=== PATIENT | male | born 1995 | race Caucasian/White ===

== ENCOUNTER → 2023-06-14 14:00 | Outpatient (REF) | payer OTHER, SELFPAY ==
--- NOTE | 2023-06-14 14:07 | CA_ITS ---
Transthoracic Echocardiogram Patient (Last, First, Middle): Phi Hutchison, Gender: Male Date of : 1995 Age: 27 Procedure Date: 06/14/2023 Procedure Type: Transthoracic Echocardiogram Location: OP Height: 182.88 cm Weight: 68.04 kg BSA: 1.89 m2 Heart Rate: bpm BP: 118 / 70 mmHg Systems Coordinator: TO Referring MD: Jacquelyn Pyle NP Toll Bridge Operator: Tao Nguyen MD Symptoms: R00.2 PALPITATIONS Study Quality: Adequate ECG Rhythm: Sinus Conclusions: - Normal study Findings Left Ventricle Normal left ventricular size, thickness, and systolic function. The visually estimated ejection fraction is between 60-65%. Diastolic function is normal for age. Peak GLS is -24.5< which is excellent. Right Ventricle Normal right ventricular cavity size and systolic function. Atria Both atria are normal in size. There is no evidence of interatrial shunt. Aortic Valve Normal aortic valve structure and function. There is no aortic valve stenosis. There is no aortic valve regurgitation. Mitral Valve Normal mitral valve structure and function. There is trace mitral valve regurgitation. There is no mitral valve stenosis. Pulmonic Valve The pulmonic valve is likely normal. There is trace pulmonic valve regurgitation. Tricuspid Valve Normal tricuspid valve structure. There is trace tricuspid valve regurgitation. The right ventricular systolic pressure is normal. The right ventricular systolic pressure is 19 mmHg. Normal right atrial pressure. There is no evidence of pulmonary hypertension. Great Vessels All visible segments of the aorta are normal in size. The pulmonary artery was not well visualized. Venous The inferior vena cava is normal in size and collapses greater than 50% with inspiration. Pericardium/Pleural There is no evidence of pericardial effusion. Prior Study Comparison No prior study available for comparison. Measurements 2D Linear Measurements IVSd: 0.94 0.6-0.9/0.6-1.0 cm LVIDd: 4.50 3.9-5.3/4.2-5.9 cm LVIDd Index: 2.38 2.4-3.2/2.2-3.1 cm/m2 LVIDs: 2.66 2.0-3.6 cm LVPWd: 0.79 0.7-1.1 cm LA Diam: 3.50 2.7-3.8/3.0-4.0 cm LAIDs Index: 1.85 1.5-2.3 cm/m2 LV Mass: 155.86 67-162/88-224 g LV Mass Index: 82.47 43-95/49-115 g/m2 LVOT Diam: 2.10 3.0+(-)1.3 cm 2D Systolic Function EF 4C: 60.10 >55% EF 2C: 64.40 >55% EF BiP: 62.50 >55% Mitral Valve MV Pk E: 0.81 MV PK A: 0.52 MV Decel Time: 212.00 E/A: 1.60 E'Lateral: 16.30 E'Medial: 10.60 E/E' Med: 7.70 E/E' Lat: 5.00 PHT: 62.00 MVA PHT: 3.55 Decel [place]: 3.84 Aortic Valve AoV Pk Jason: 1.15 AoV Mn Jason: 0.76 AoV VTI: 0.24 AoV Pk Grad: 5.00 Aov Mn Grad: 3.00 ANU Cont.VTI: 2.53 LVOT LVOT Pk Jason: 0.85 LVOT Mn Jason: 0.55 LVOT VTI: 0.17 LVOT Pk Grad: 3.00 LVOT Mn Grad: 1.00 LVOT Diam: 2.10 LVOT Area: 3.46 Diastolic Function MV Pk E: 0.81 MV Pk A: 0.52 E/A: 1.60 E'Medial: 10.60 E/E' Med: 7.70 E' Laterial: 16.30 E/E' Lat: 5.00 Right Ventricle TAPSE (mm): 20.70 TVS' Jason: 13.40 Tricuspid Valve TR Pk Jason: 2.01 TR Pk Grad: 16.00 RA Press: 3.00 RVSP: 19.00 Great Vessels Aorta Sinus of Valsalva: 2.78 2.0-3.5 cm Ao Asc: 2.60 2.1-3.4 cm Updated in Other Vendor System with Status of Final Tao Nguyen MD electronically signed on 06/14/2023 6:42:57 PM with status of Final
== END ==
LOC: HO.CARD 14:00
PROVIDERS: PCP Nurse Practitioner; Visit Provider Nurse Practitioner
DX: R00.2 Palpitations (principal)
CPT/HCPCS: 93306; 93356

== ENCOUNTER → 2023-06-14 14:07 | Outpatient (BNV) | payer SELFPAY | PROVIDERS: PCP Nurse Practitioner; Visit Provider Internal Medicine Cardiovascular Disease | DX: R00.2 Palpitations (principal) | CPT/HCPCS: 93306 ==

== ENCOUNTER 2023-10-09 08:49 | Outpatient (REF) | payer OTHER, SELFPAY ==
--- NOTE | ~2023-10-09 | US_ITS ---
EXAMINATION: US ABDOMEN COMPLETE CLINICAL INFORMATION: Gastroesophageal reflux disease. COMPARISON: None available. TECHNIQUE: Real-time imaging of the abdominal viscera. Limited visualization due to bowel gas. FINDINGS: PANCREAS: Limited visualization of pancreatic tail and head. Imaged portion of pancreatic body is unremarkable. ABDOMINAL AORTA: Nonaneurysmal. INFERIOR VENA CAVA: Visualized portions are normal. LIVER: Borderline mildly heterogeneous hepatic echotexture, possibly representing hepatocellular disease. Correlation with liver function tests and clinical exam recommended. Limited visualization. GALLBLADDER: No gallbladder wall thickening. No gallstones. COMMON BILE DUCT: Normal in caliber measuring 0.3 cm in diameter. RIGHT KIDNEY: No hydronephrosis. No renal calculi. Limited visualization. The kidney measures 11.2 cm in maximum dimension. LEFT KIDNEY: No hydronephrosis. No renal calculi. Limited visualization. The kidney measures 9.9 cm in maximum dimension. SPLEEN: Normal. The spleen measures 11.4 cm in maximum dimension. FREE FLUID: None. US/US abdomen complete IMPRESSION: Borderline mildly heterogeneous hepatic echotexture, possibly representing hepatocellular disease. Correlation with liver function tests and clinical exam recommended.
== END 2023-10-09 08:50 | disposition home or self-care (01) ==
LOC: HO.UMASIMG 08:49
PROVIDERS: Visit Provider Nurse Practitioner
DX: K21.00 Gastro-esophageal reflux disease with esophagitis, without bleeding (principal)
CPT/HCPCS: 76700